=== PATIENT | female | born 1965 | race African-American/Black ===

== ENCOUNTER 2020-04-11 11:53 | Emergency (ER) | payer OTHER, MEDICAID ==
[~2020-04-11] VITALS: Ht 162.6 cm; Wt 176.4 kg
[~2020-04-11 11:53] MED LIST: BUSP10TA3 PO; DOCU250C14 PO; DULO60CA41 PO; ESOM40CA PO; ESOM40CA53 PO; FLUT1AER INH; FURO-149 PO; LOSA100T3 PO; MELO15TA13 PO; NAPR-1174 PO; NOR10 PO; POTA10TA15 PO; SERT100T PO; TOP25 PO; TRAM50TA92 PO; VIS25 PO
[2020-04-11 12:15] VITALS: BP_SYST 135
[2020-04-11 13:09] LABS: BASOPHILS # (AUTO) 0.1 K/uL (0.0-0.2); BASOPHILS % (AUTO) 1.1 % (0.0-2.0); EOSINOPHILS # (AUTO) 0.6 K/uL (0.0-0.4); EOSINOPHILS % (AUTO) 7.3 % (0.0-4.0); HEMATOCRIT 32.4 % (36-48); HEMOGLOBIN 10.5 g/dL (12.0-16.0); LYMPHOCYTES # (AUTO) 2.7 K/uL (1.0-5.5); LYMPHOCYTES % (AUTO) 34.6 % (20.5-51.5); MEAN CORPUSCULAR HEMOGLOBIN 25 pg (27-31); MEAN CORPUSCULAR HGB CONC 32 % (32-36); MEAN CORPUSCULAR VOLUME 78 fL (79.0-98.0); MONOCYTES # (AUTO) 0.7 K/uL (0.0-1.0); MONOCYTES % (AUTO) 9.1 % (1.7-9.3); NEUTROPHILS # (AUTO) 3.8 K/uL (1.8-7.7); NEUTROPHILS % (AUTO) 47.9 % (40.0-70.0); PLATELET COUNT (AUTO) 134 K/uL (130-430); RED BLOOD CELL COUNT(AUTO) 4.17 MIL/uL (4.2-6.2); WHITE BLOOD COUNT (AUTO) 7.9 K/uL (4.8-10.8)
[2020-04-11] MEDS: NACL 0.9% 1,000 ML IV ONE (13:12)
[2020-04-11] MEDS: KETOROLAC TROMETHAMINE 30 MG VIAL IVP ONE (13:13)
[2020-04-11 13:26] LABS: ALBUMIN 3.9 g/dL (3.4-4.8); CREATININE 1.38 mg/dL (0.55-1.30); POTASSIUM 3.6 mmol/L (3.5-5.1); TOTAL BILIRUBIN 0.3 mg/dL (0.0-1.0)
[2020-04-11 13:36] LABS: BILIRUBIN,URINE NEGATIVE (NEGATIVE); BLOOD, URINE NEGATIVE (NEGATIVE); CLARITY/URINE HAZY (CLEAR); COLOR,URINE YELLOW (YELLOW); GLUCOSE,URINE NEGATIVE (NEGATIVE); KETONES,URINE NEGATIVE (NEGATIVE); LEUKOCYTE ESTERASE ,URINE 3+ (NEGATIVE); PH,URINE 6.5 (5.0-8.0); PROTEIN URINE NEGATIVE (NEGATIVE); UROBILINOGEN,URINE 0.2 (0.2-1.0)
[2020-04-11 13:37] LABS: NITRITE, URINE POSITIVE (NEGATIVE)
[2020-04-11 13:39] LABS: BACTERIA,URINE MODERATE /HPF (None Seen); MUCUS,URINE 1+ /LPF (None Seen); RBC,URINE 0-3 /HPF (0-3); WBC,URINE 20-50 /HPF (0-3)
[2020-04-11] MEDS: MORPHINE 4 MG/ML INJ. SYRINGE IVP ONE (14:35)
[2020-04-11] MEDS: ONDANSETRON HCL 4 MG/2 ML VIAL IVP ONE (14:36)
[2020-04-11 15:53] VITALS: BP_SYST 128
== END 2020-04-11 15:53 | disposition home or self-care (01) ==
LOC: SED 11:53
DX: N39.0 Urinary tract infection, site not specified (principal); M54.5 Low back pain; J44.9 Chronic obstructive pulmonary disease, unspecified; K21.9 Gastro-esophageal reflux disease without esophagitis; I10 Essential (primary) hypertension; Z86.73 Personal history of transient ischemic attack (TIA), and cerebral infarction without residual deficits; Z79.899 Other long term (current) drug therapy; Z88.0 Allergy status to penicillin
CPT/HCPCS: 36415; 80053; 81000-TC; 83605; 85025; 87040-TC; 87086; 96361; 96365; 96375; 99284

== ENCOUNTER 2021-09-20 07:49 | Emergency (ER) | payer OTHER, MEDICAID ==
[~2021-09-20] VITALS: Ht 162.6 cm; Wt 158.8 kg
[~2021-09-20 07:49] MED LIST changes: -DULO60CA41 PO; +DULO60CA42 PO
[2021-09-20 07:51] VITALS: BP_SYST 140
--- NOTE | 2021-09-20 07:55 | NUR ---
BROUGHT BACK TO BED #7 AND TRIAGED. REPORT GIVEN TO ISRAEL
--- NOTE | 2021-09-20 08:09 | NUR ---
Urine specimen collected and sent to lab.
--- NOTE | 2021-09-20 08:10 | NUR ---
Pt coming from home accompanied by caregiver ambulatory with steady gait. Pt is A&Ox4. Skin intact. Pt c/o left upper back pain that radiates to right upper back and upper abdomen. Rates pain 10/10 that started yesterday. Pt states she also has burning sensation upon urination and urination frequenct that started yesterday as well. No chest pain and no sob. Denies n/v. VSS. Allergic to Penicillin. Has hx of COPD, HTN, and Asthma. Bed in lowest position.
--- NOTE | 2021-09-20 08:20 | NUR ---
ER at bedside examining patient.
--- NOTE | 2021-09-20 08:25 | NUR ---
Patient transported to radiology via gurney, accompanied by [employer] tech.
[2021-09-20] MEDS ORDERED: NACL 0.9% 1,000 ML IV ONE (08:30)
[2021-09-20] MEDS ORDERED: KETOROLAC TROMETHAMINE 30 MG VIAL IVP ONE (08:30)
[2021-09-20] MEDS ORDERED: CHOL500013 PO (08:30)
[2021-09-20] MEDS ORDERED: ONDANSETRON HCL 4 MG/2 ML VIAL IVP ONE (08:30)
[2021-09-20] MEDS ORDERED: MORPHINE 4 MG INJ. 4 MG/ML VIAL IVP ONE (08:30)
[2021-09-20] MEDS ORDERED: OMEP20CA15 PO (08:35)
[2021-09-20] MEDS ORDERED: GABA-533 PO (08:35)
[2021-09-20] MEDS ORDERED: MONT-40 PO (08:35)
--- NOTE | 2021-09-20 08:35 | NUR ---
Returned from radiology, back to [facility].
--- NOTE | 2021-09-20 08:35 | NUR ---
Medication reconciliation completed with information provided by primary caregiver. Any prior medication reconciliation on file was reviewed and corrected.
--- NOTE | 2021-09-20 08:48 | NUR ---
radiologic technology program director at bedside.
--- NOTE | 2021-09-20 08:48 | NUR ---
# 20 gauge angiocath placed to right AC. Use of asceptic technique. Opsite placed over site. Blood return noted. Flushed with 10 cc of normal saline. No evidence of infiltration noted. Patient tolerated well.
[2021-09-20 08:54] LABS: BILIRUBIN,URINE NEGATIVE (NEGATIVE); BLOOD, URINE NEGATIVE (NEGATIVE); CLARITY/URINE CLEAR (CLEAR); COLOR,URINE YELLOW (YELLOW); GLUCOSE,URINE NEGATIVE (NEGATIVE); KETONES,URINE NEGATIVE (NEGATIVE); LEUKOCYTE ESTERASE ,URINE NEGATIVE (NEGATIVE); NITRITE, URINE POSITIVE (NEGATIVE); PROTEIN URINE NEGATIVE (NEGATIVE); UROBILINOGEN,URINE 0.2 (0.2-1.0)
[2021-09-20 09:08] LABS: BASOPHILS # (AUTO) 0.1 K/uL (0.0-0.2); BASOPHILS % (AUTO) 1.2 % (0.0-2.0); EOSINOPHILS # (AUTO) 0.3 K/uL (0.0-0.4); EOSINOPHILS % (AUTO) 4.6 % (0.0-4.0); HEMATOCRIT 36.9 % (36-48); HEMOGLOBIN 11.8 g/dL (12.0-16.0); LYMPHOCYTES # (AUTO) 2.3 K/uL (1.0-5.5); LYMPHOCYTES % (AUTO) 41.1 % (20.5-51.5); MEAN CORPUSCULAR HEMOGLOBIN 25 pg (27-31); MEAN CORPUSCULAR HGB CONC 32 % (32-36); MEAN CORPUSCULAR VOLUME 76 fL (79.0-98.0); MONOCYTES # (AUTO) 0.5 K/uL (0.0-1.0); MONOCYTES % (AUTO) 9.3 % (1.7-9.3); NEUTROPHILS # (AUTO) 2.4 K/uL (1.8-7.7); NEUTROPHILS % (AUTO) 43.8 % (40.0-70.0); PLATELET COUNT (AUTO) 123 K/uL (130-430); RED BLOOD CELL COUNT(AUTO) 4.82 MIL/uL (4.2-6.2); RED CELL DISTRIBUTION WIDTH 16.4 % (9.0-15.0); WHITE BLOOD COUNT (AUTO) 5.6 K/uL (4.8-10.8)
[2021-09-20 09:20] LABS: CALCIUM 8.8 mg/dL (8.4-11.0); CREATININE 1.06 mg/dL (0.55-1.30); POTASSIUM 4.1 mmol/L (3.5-5.1)
[2021-09-20 09:25] LABS: ALBUMIN 3.7 g/dL (3.4-4.8); TOTAL BILIRUBIN 0.3 mg/dL (0.0-1.0)
[2021-09-20] MEDS ORDERED: cefTRIAXone 1 GM in D5W 50 ML IV ONE (09:45)
[2021-09-20] MEDS ORDERED: cefTRIAXone 1 GM VIAL ONE (09:56)
[2021-09-20 09:59] LABS: BACTERIA,URINE MANY /HPF (None Seen); RBC,URINE 0-3 /HPF (0-3); WBC,URINE 0-3 /HPF (0-3)
[2021-09-20] MEDS ORDERED: NITR-85 PO (10:51)
[2021-09-20] MEDS ORDERED: IBUP-1969 PO (10:52)
--- NOTE | 2021-09-20 11:15 | NUR ---
Patient given written and verbal discharge instructions and verbalizes understanding. ER MD discussed with patient the results and treatment provided. Patient in stable condition. ID arm band removed. IV catheter removed intact and dressing applied, no active bleeding. Rx of Ibuprofen and Macrobid given. Patient educated on pain management and to follow up with PMD. Pain Scale . Opportunity for questions provided and answered. Medication side effect fact sheet provided.
[2021-09-20 11:16] VITALS: BP_SYST 124
== END 2021-09-20 11:16 | disposition home or self-care (01) ==
LOC: SED 07:49
DX: N39.0 Urinary tract infection, site not specified (principal); I10 Essential (primary) hypertension; J45.909 Unspecified asthma, uncomplicated; Z88.0 Allergy status to penicillin; Z79.899 Other long term (current) drug therapy
CPT/HCPCS: 36415; 74176; 76376; 80053; 81000; 83690; 85025; 87086; 96361; 96365; 96375; 99284; J0696; J1885; J2270; J2405; J7030

== ENCOUNTER 2024-01-29 15:57 | Emergency (ER) | payer OTHER, MEDICAID ==
[~2024-01-29] VITALS: Ht 160 cm; Wt 158.8 kg
[~2024-01-29 15:57] MED LIST changes: +CHOL500013 PO; -ESOM40CA53 PO; +ESOM40CA65 PO; +GABA-534 PO; +IBUP-1969 PO; +LOSA-415 PO; -LOSA100T3 PO; +MONT-40 PO; +NITR-85 PO; +OMEP20CA15 PO
[2024-01-29 16:10] VITALS: BP_SYST 135; PULSE 85; RESP 18; TEMP 97.8; O2SAT 96
[2024-01-29] MEDS: KETOROLAC TROMETHAMINE 60 MG/2 ML VIAL IM ONE (17:18)
[2024-01-29] MEDS: ACETAMINOPHEN 500 MG TABLET PO ONE (19:33)
[2024-01-29] MEDS: SULFAMETHOXAZOLE/TRIMETHOPR DS 1 TABLET PO ONE (19:33)
[2024-01-29] MEDS ORDERED: DICL20GE TP (19:54)
[2024-01-29] MEDS ORDERED: NYST50002 PO (19:54)
[2024-01-29] MEDS ORDERED: SULF1TAB48 PO (19:54)
[2024-01-29 20:20] VITALS: BP_SYST 134; PULSE 75; RESP 18; TEMP 98.3; O2SAT 97
== END 2024-01-29 20:20 | disposition home or self-care (01) ==
LOC: SED 15:57
DX: G43.909 Migraine, unspecified, not intractable, without status migrainosus (principal); L03.116 Cellulitis of left lower limb; J45.909 Unspecified asthma, uncomplicated; E11.9 Type 2 diabetes mellitus without complications; K21.9 Gastro-esophageal reflux disease without esophagitis; I10 Essential (primary) hypertension; Z98.890 Other specified postprocedural states; Z88.0 Allergy status to penicillin; Z79.899 Other long term (current) drug therapy; Z79.2 Long term (current) use of antibiotics
CPT/HCPCS: 99285; 70450; 96372; J1885